=== PATIENT | female | born 1960 | race Caucasian/White ===

== ENCOUNTER → 2017-11-07 | Outpatient (CLI) | payer BC ==
[2017-11-07 16:28] LABS: ALT 24 U/L (9-52); AST 27 U/L (14-36); Cholesterol 186 mg/dL (<200); Creatine Kinase 118 U/L (30-135); HDL Cholesterol 81 mg/dL (40-60); LDL Cholesterol,Calculated 91 mg/dL (0-99); Triglycerides 71 mg/dL (<150)
== END | disposition home or self-care (01) ==
LOC: LABWHC1 15:19
PROVIDERS: ATTEND Nurse Practitioner Adult Health
DX: E78.2 Mixed hyperlipidemia (principal)
CPT/HCPCS: 36415; 80061; 82550; 84450; 84460

== ENCOUNTER → 2018-11-06 | Outpatient (CLI) | payer BC | END | disposition home or self-care (01) | LOC: LABWHC1 10:24 | PROVIDERS: ATTEND Nurse Practitioner Adult Health | DX: E78.00 Pure hypercholesterolemia, unspecified (principal); E78.2 Mixed hyperlipidemia | CPT/HCPCS: 36415; 80061; 84450; 84460 ==

== ENCOUNTER → 2024-03-15 | Outpatient (CLI) | payer BC | END | disposition home or self-care (01) | LOC: LABWHC1 11:27 | DX: Z53.9 Procedure and treatment not carried out, unspecified reason (principal) ==

== ENCOUNTER → 2024-05-21 | Outpatient (CLI) | payer BC ==
[2024-05-21 14:05] LABS: Basophils % (A) 1 %; Eosinophils # (A) 0.1 k/uL (0-0.7); Eosinophils % (A) 2 %; HCT 41.2 % (34.0-46.0); HGB 13.7 gm/dL (11.4-16.0); Lymphocytes # (A) 1.4 k/uL (1.0-4.8); Lymphocytes % (A) 29 %; MCH 30.5 pg (25.0-35.0); MCHC 33.4 g/dL (31.0-37.0); MCV 91.4 fL (80.0-100.0); Mean Platelet Volume 7.7; Monocytes # (A) 0.3 k/uL (0-1.0); Monocytes % (A) 6 %; Neutrophils % (A) 60 %; Platelet Count 240 k/uL (150-450); RDW 12.6 % (11.5-15.5)
[2024-05-21 14:12] LABS: ALT 18 U/L (4-34); AST 32 U/L (14-36); African American GFR (CKD) 82 (>60 ml/min/1.73 sqM); Albumin 4.7 g/dL (3.5-5.0); Albumin/Globulin Ratio 1.6; Alkaline Phosphatase 64 U/L (38-126); Anion Gap 9 mmol/L; Blood Urea Nitrogen 18 mg/dL (7-17); Calcium 9.5 mg/dL (8.4-10.2); Carbon Dioxide 26 mmol/L (22-30); Chloride 100 mmol/L (98-107); Globulin 2.9 g/dL; Glucose 97 mg/dL (74-99); Magnesium 1.8 mg/dL (1.6-2.3); Non-African American GFR(CKD) 71 (>60 ml/min/1.73 sqM); Potassium 3.7 mmol/L (3.5-5.1); Sodium 135 mmol/L (137-145); Total Bilirubin 0.7 mg/dL (0.2-1.3); Total Protein 7.6 g/dL (6.3-8.2)
[2024-05-21 19:50] LABS: Chol/HDL Ratio 2.42 Ratio; LDL Cholesterol,Calculated 96.6 mg/dL (0.0-131.0)
== END | disposition home or self-care (01) ==
LOC: LABWHC1 12:18
PROVIDERS: ATTEND Internal Medicine Clinical Cardiac Electrophysiology
CPT/HCPCS: 36415; 80053; 80061; 83735; 84443; 85025

== ENCOUNTER → 2025-01-29 | Outpatient (CLI) | payer BC ==
--- NOTE | 2025-01-29 10:51 | MR ---
EXAMINATION TYPE: MR knee RT wo con DATE OF EXAM: 01/29/2025 COMPARISON: Outside right knee x-ray January 23, 2025 HISTORY: Right knee pain x 2 weeks. TECHNIQUE: Multiplanar, multisequence images of the knee is performed without IV contrast. FINDINGS: MEDIAL MENISCUS: Triangular shaped increased signal posterior horn does not definitively to articular surface. LATERAL MENISCUS: Anterior and posterior horns are intact without tear. CRUCIATE LIGAMENTS: The anterior and posterior cruciate ligaments are intact and unremarkable. COLLATERAL LIGAMENTS: The medial collateral ligament and lateral collateral ligament complex are inta ct and unremarkable. EXTENSOR MECHANISM: Visualized quadriceps and patellar tendons are intact. EFFUSION: No significant suprapatellar joint effusion. POPLITEAL CYST: No popliteal/hall cyst. TRICOMPARTMENT SPACES: Moderate to severe narrowing patellofemoral compartment mild to moderate spurr ing. Mild to moderate narrowing and spurring medial and lateral tibiofemoral compartments. CARTILAGE: Significant chondromalacia patella with full-thickness cartilaginous loss along the inferi or portion of the posterior patellar pole. BONE MARROW SIGNAL: No focal abnormal marrow signal is appreciated. OTHER: Some ill-defined fluid in the superficial aspect of the popliteal fossa extending inferiorly. There is cystic change along the posterior medial aspect of the proximal tibia. IMPRESSION: 1. 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 Moderate to advanced findings noted patellofemoral compartment. 2. Intrasubstance tear posterior horn of medial meniscus. No full-thickness meniscal or ligamentous t ear is seen. 3. Mild edematous change throughout the popliteal fossa. [facility], , 01/29/2025 10:48 AM
== END | disposition home or self-care (01) ==
LOC: RADMRIMAIN 09:59
PROVIDERS: ATTEND Orthopaedic Surgery
DX: S83.241A Other tear of medial meniscus, current injury, right knee, initial encounter (principal); M17.11 Unilateral primary osteoarthritis, right knee; X58.XXXA Exposure to other specified factors, initial encounter